=== PATIENT | female | born 1980 | race Caucasian/White ===

== ENCOUNTER 2016-12-15 14:51 | Observation (INO) | payer MEDICARE, MEDICAID ==
[2016-12-15] MEDS ORDERED: Sodium Chloride 0.9% 1,000 ML IV ONE (15:11)
[2016-12-15] MEDS ORDERED: Ondansetron 4 MG/2 ML SDV IVPUSH ONE (15:13)
[2016-12-15] MEDS ORDERED: Pantoprazole 40 MG Vial IVPUSH ONE (15:13)
[2016-12-15] MEDS ORDERED: Aluminum Hydroxide/Magnesium Hydroxide Susp 30 ML Cup PO STA (15:15)
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
[2016-12-15] MEDS ORDERED: diphenhydrAMINE 50 MG/ML SDV IVPUSH STA (16:55)
[2016-12-15] MEDS ORDERED: hydrOXYzine HCl 50 MG/ML SDV IM ONE (16:57)
[2016-12-15] MEDS ORDERED: LORazepam 2 MG/ML MDV IVPUSH STA (19:00)
[2016-12-15] MEDS ORDERED: Sodium Chloride 0.9% 10 ML Syringe FLUSH PRN (19:02)
[2016-12-15] MEDS ORDERED: LORazepam 0.5 MG Tab PO PRN (22:03)
[2016-12-15] MEDS ORDERED: Ondansetron 4 MG/2 ML SDV IVPUSH PRN (22:05)
[2016-12-15] MEDS ORDERED: traZODone 100 MG Tab PO SCH (22:30)
[2016-12-15] MEDS: QUEtiapine 25 MG Tab PO SCH (22:52)
[2016-12-15] MEDS: ZIPRASIDONE HCL 40 MG PO SCH (22:53)
[2016-12-16] MEDS: Omeprazole 20 MG Cap.CR PO SCH ×2 (05:57→10:09)
[2016-12-16] MEDS ORDERED: Benztropine 0.5 MG Tab PO SCH (09:00)
[2016-12-16 09:23] VITALS: BP 96/63
[2016-12-16] MEDS: ZIPRASIDONE HCL 40 MG PO SCH (10:10)
[2016-12-16] MEDS: QUEtiapine 25 MG Tab PO SCH (10:10)
--- NOTE | 2016-12-16 13:25 | PN ---
DATE SEEN: 12/16/2016 SUBJECTIVE: Olga is seen today for followup. Actually, she is doing much better. She tolerated breakfast and lunch well and has had no further nausea or vomiting. She would like to go home. She denies any headaches or blurred vision. She says she is having no hallucinations whatsoever. She does need a note for work for yesterday and today. OBJECTIVE: GENERAL: She is sitting comfortably and at this time, in no acute distress. She is afebrile. VITAL SIGNS: Blood pressure 96/63, pulse when I checked it was 84 and regular, and respirations are unlabored. HEENT: Unremarkable. CHEST: Clear. ABDOMEN: Soft. No tenderness was noted. There is no rebound or rigidity. EXTREMITIES: Negative. IMPRESSION: 1. Gastroenteritis with dehydration and resultant abdominal pain, improved. 2. History of bipolar disorder with chronic anxiety. 3. Previous history of illicit drug use. PLAN: We discussed her further treatment. I recommended she go back on her regular medications and discontinue the illicit drug use as it interferes with her current medicines and tends to make her sick. I have given her an excuse for missing work yesterday and today and encouraged her to drink plenty of fluids. Avoid any alcohol or other irritants to her stomach. Plan on followup with her regular provider in a week for recheck. If there are other problems or difficulties, let us know. /[id number] /SEANL
--- NOTE | 2016-12-16 13:31 | HP ---
ADMISSION DATE: 12/15/2016 CHIEF COMPLAINT: Persistent nausea and vomiting with increased confusion and hallucinations. HISTORY OF PRESENT ILLNESS: This patient is a 36-year-old, female with a longstanding psychiatric history complicated by confusion, chronic anxiety, intermittent hallucinations with panic disorder, recurrent gastritis, Leiden factor V, heterogeneous chain disorder, and illicit drug use who was admitted from the emergency room complaining of increased nausea and vomiting. Apparently, she took her regular medications, which include Geodon this morning on an empty stomach, and at about 10:30, she began having increased nausea and vomiting. She says she was unable to keep even small amounts of liquids down. Because of that, she was brought to the emergency room. She was given IV fluids along with IV Protonix and Ativan. Maalox was given, but she continued to complain of nausea. She was given some IV Vistaril and became more and more confused, began hallucinating, which apparently has been not been all that unusual; however, because they elected to admit her for observation, she was therefore brought over to the floor. She, at this time, denies any epigastric pain. She says she has had no further vomiting. She denies any headache or blurred vision. She is able to tell me the day, date, and year, but easily becomes confused when talking about her history. She denies any recent head trauma. Has had no shortness of breath or chest pain. Denies any palpitations, melena, hematochezia, hematemesis, or hematuria. MEDICATIONS: Difficult to ascertain. As far as I can tell, she takes: 1. Geodon 40 mg b.i.d. 2. Trazodone 100 mg at bedtime. 3. Seroquel 25 mg b.i.d. 4. She is also on omeprazole 20 mg daily. 5. Lorazepam 0.5 mg t.i.d. 6. Cogentin 0.5 mg b.i.d. I asked about other illicit drug use. Apparently, she used marijuana on a regular basis and has used methamphetamine or cocaine in the past also. ALLERGIES: Are extensive and include promethazine, citalopram, Benadryl, Depakote, Reglan, and tramadol. SOCIAL HISTORY: She smokes half pack per day and has done so for many years. She was unable to tell me when she started. Alcohol is used occasionally. PAST MEDICAL HISTORY: Quite extensive and includes previous appendectomy, oophorectomy, previous upper GI endoscopy for gastritis. She has been seen in the emergency room multiple times for many different problems including the above-mentioned anxiety, recurrent vomiting, recurrent epigastric pain. She has a history of bipolar disorder and depression along with reported cardiac arrest back in 2011. She has been at least once and has had cervical conization done. FAMILY HISTORY: Both parents apparently in their late 50s. Father from some sort of cancer; the mother, she is not sure of, thinks it was related to COPD. She has 8 brothers and 2 sisters. One brother apparently has had stem- cell transplant for lymphocytic leukemia. REVIEW OF SYSTEMS: Attempted. Other than that mentioned above in the HPI was otherwise unremarkable. PHYSICAL EXAMINATION: VITAL SIGNS: At this time shows her to be afebrile. Exam today reveals her temperature to be 99.2, blood pressure is 96/63, pulse is 89 and regular, respirations are 16, O2 saturation on room air is 97%. GENERAL: Well-developed, thin-appearing female, who at this time appears in no acute distress. HEENT: Unremarkable. Mucous membranes are pink and moist. Thyroid is not enlarged. Trachea is midline. Chest exam reveals scattered upper airway rhonchi that clears with cough. No wheezes. The expiratory phase may have been slightly prolonged. CARDIOVASCULAR: Reveals a normal S1 and S2 without murmur, rub, or gallop. ABDOMEN: Soft and nontender without organomegaly or masses. Bowel sounds are present. No bruits are noted. EXTREMITIES: Without clubbing. No edema. No ulcerations or areas of breakdown. No calf pain, swelling, or tenderness. There is no evidence of asterixis or hyperreflexia. She is orientated as to person, time, and place. She would mumble multiple times throughout the interview, as her mind would wander off to different subjects, but is easily reoriented. No active hallucinations are noted at this time, either visual or auditory. LABORATORY DATA: Her hemoglobin was 15.7, hematocrit 46.5, white count of 14,900 with a little bit of left shift. Her electrolytes were normal. Creatinine was 0.7, BUN of 7, random glucose was 139. She had normal liver functions. Urinalysis was unremarkable except her pH was a bit high, and she had 15 mg% of ketones. Urine-drug screen, however, was positive for oxycodone, benzodiazepines, cocaine, metabolites, and THC. Since being here, she has been given a liter of normal saline and has been able to eat and drink. There has been no further nausea or vomiting. She has been sleeping well. IMPRESSION: 1. Recent episode of gastroenteritis with mild dehydration that actually seems to be improving. 2. Longstanding history of bipolar disorder with intermittent hallucinations. 3. History of recurrent gastritis. PLAN: We will advance her diet and continue to monitor, and we will see how things go. If in fact she is able to keep fluids down, restart her home medications. We talked to her at length about avoiding any extraneous and illicit drug uses, the combinations do not do well with the medication she is currently taking. We will proceed from there. /[id number] /MARK
== END 2016-12-16 12:58 | disposition home or self-care (01) ==
LOC: FB.ED 14:51 → FB.OB 19:03 → FB.MS 20:00
PROVIDERS: ADMIT Emergency Medicine; ATTEND Family Medicine
DX: K52.9 Noninfective gastroenteritis and colitis, unspecified (principal); E86.0 Dehydration; Z88.8 Allergy status to other drugs, medicaments and biological substances; F32.9 Major depressive disorder, single episode, unspecified; Z90.49 Acquired absence of other specified parts of digestive tract; Z79.899 Other long term (current) drug therapy; Z90.710 Acquired absence of both cervix and uterus; F17.210 Nicotine dependence, cigarettes, uncomplicated; F41.9 Anxiety disorder, unspecified
CPT/HCPCS: 36415; 80048; 80076; 80305; 81001; 82150; 85025; 96361; 96372; 96374; 96375; 96376; 99213; 99225; 99284; 99285; A9270; C9113; G0378; J1200; J2060; J2405; J3410; J7040; J7050

== ENCOUNTER 2017-07-25 08:36 | Day surgery (SDC) | payer MEDICARE, MEDICAID ==
[~2017-07-25 08:36] MED LIST: Lactated Ringers 1,000 ML IV SCH; Sodium Chloride 0.9% 10 ML Syringe FLUSH PRN
[2017-07-25] MEDS ORDERED: Midazolam 1 MG/ML 2 ML SDV IV ONE (08:37)
[2017-07-25] MEDS ORDERED: Propofol 200 MG/20 ML SDV IV ONE (08:37)
--- NOTE | 2017-07-25 09:49 | PCM.OPNOTE ---
- General Post-Op/Procedure Note Date of Surgery/Procedure: 07/25/17 Operative Procedure(s): c scope with random biopsy Findings: normal colon Pre Op Diagnosis: diarrhea Post-Op Diagnosis: nl scope Anesthesia Technique: MAC Primary Surgeon: Will Urrutia Anesthesia Provider: Ayde Olivares Pathology: colon biopsies Complications: None Condition: Good Free Text/Narrative:: see dictation
[2017-07-25 11:03] VITALS: BP 102/64
--- NOTE | 2017-07-25 15:14 | OR ---
DATE OF OPERATION: 07/25/2017 SURGEON: Will Urrutia MD PROCEDURE PERFORMED: Colonoscopy with cold forceps biopsy. PREOPERATIVE DIAGNOSIS: Diarrhea. POSTOPERATIVE DIAGNOSIS: Normal scope. INDICATIONS FOR PROCEDURE: This is a 36-year-old white female who is referred with the above-mentioned history of diarrhea, having up to 5-6 loose stools a day. This has also been accompanied by a weight loss. Workup to date has been negative. She has been offered and accepted a colonoscopy. DESCRIPTION OF PROCEDURE: After an excellent IV sedation was administered via anesthesia, a digital rectal exam was performed. No marked abnormality was noted. The flexible colonoscope was inserted and advanced to the cecum without difficulty. The prep was excellent. Attempts to intubate the terminal ileum were not successful. The scope was then slowly withdrawn and the following findings were noted. Ascending colon, unremarkable. Random biopsies were taken. Transverse colon, unremarkable. Random biopsies were taken. Descending colon, unremarkable. Random biopsies were taken. Sigmoid and rectum, unremarkable. Random biopsies were taken. The colon was deflated as the scope was removed and the patient was taken to recovery in good condition having tolerated the procedure well. /[id number] /SEANL
== END 2017-07-25 11:17 | disposition home or self-care (01) ==
LOC: FB.SDS 08:36
PROVIDERS: ATTEND Surgery
DX: R19.7 Diarrhea, unspecified (principal); K21.9 Gastro-esophageal reflux disease without esophagitis; F41.9 Anxiety disorder, unspecified; F32.9 Major depressive disorder, single episode, unspecified; Z88.8 Allergy status to other drugs, medicaments and biological substances; Z79.899 Other long term (current) drug therapy; Z90.49 Acquired absence of other specified parts of digestive tract; Z98.890 Other specified postprocedural states; F17.210 Nicotine dependence, cigarettes, uncomplicated
CPT/HCPCS: 00810; 45380; 81025; 88305; J2250; J2704; J7120

== ENCOUNTER 2018-06-14 18:34 | Emergency (ER) | payer MEDICARE, MEDICAID ==
[2018-06-14] MEDS ORDERED: Ketorolac 30 MG/ML SDV IM ONE (20:33)
[2018-06-14] MEDS ORDERED: Ketorolac 60 MG/2 ML SDV IM ONE (20:45)
[2018-06-14 21:01] VITALS: BP 112/65
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
== END 2018-06-14 20:40 | disposition left against medical advice (07) ==
LOC: FB.ED 18:34
DX: S20.212A Contusion of left front wall of thorax, initial encounter (principal); J43.1 Panlobular emphysema; F19.10 Other psychoactive substance abuse, uncomplicated; Z53.20 Procedure and treatment not carried out because of patient's decision for unspecified reasons; F17.210 Nicotine dependence, cigarettes, uncomplicated; F41.9 Anxiety disorder, unspecified; F31.9 Bipolar disorder, unspecified; Z88.8 Allergy status to other drugs, medicaments and biological substances; Z79.899 Other long term (current) drug therapy; W18.40XA Slipping, tripping and stumbling without falling, unspecified, initial encounter
CPT/HCPCS: 71101-LT; 96372; 99283; J1885

== ENCOUNTER 2018-11-11 14:16 | Emergency (ER) | payer MEDICARE, MEDICAID ==
[2018-11-11] MEDS ORDERED: Ondansetron 4 MG/2 ML SDV IVPUSH ONE (14:19)
[2018-11-11] MEDS ORDERED: Sodium Chloride 0.9% 1,000 ML IV ONE (14:19)
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
[2018-11-11] MEDS ORDERED: hydrOXYzine HCl 50 MG/ML SDV IM ONE (15:12)
[2018-11-11 15:19] VITALS: BP 89/72
[2018-11-11] MEDS ORDERED: Sodium Chloride 0.9% 1,000 ML IV SCH (16:45)
[2018-11-11] MEDS ORDERED: cefTRIAXone 1 GM in Sodium Chloride 0.9% 50 ML IV ONE (16:51)
[2018-11-11] MEDS ORDERED: Prochlorperazine 10 MG/2 ML SDV IVPUSH ONE (16:54)
[2018-11-11] MEDS ORDERED: Alum Hydroxide/Mag Hydroxide 15 ML, Lidocaine 2% 15 ML PO ONE ×2 (16:58)
== END 2018-11-11 17:22 | disposition home or self-care (01) ==
LOC: FB.ED 14:16
DX: K29.20 Alcoholic gastritis without bleeding (principal); Z76.5 Malingerer [conscious simulation]; Z88.8 Allergy status to other drugs, medicaments and biological substances; Z79.899 Other long term (current) drug therapy
CPT/HCPCS: 36415; 80048; 80076; 80305; 81025; 82150; 85025; 96361; 96372; 96374; 96375; 99284; G0480; J0696; J0780; J2405; J3410; J7030; J7050

== ENCOUNTER 2019-02-08 19:44 | Emergency (ER) | payer MEDICARE, MEDICAID ==
[2019-02-08] MEDS ORDERED: Sodium Chloride 0.9% 1,000 ML IV ONE (20:09)
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
[2019-02-08] MEDS ORDERED: Ketorolac 30 MG/ML SDV IVPUSH ONE (20:13)
[2019-02-08] MEDS: Sodium Chloride 0.9% 10 ML Syringe FLUSH PRN ×2 (20:49→22:12)
[2019-02-08 21:28] VITALS: BP 113/80
[2019-02-08] MEDS ORDERED: Morphine 2 MG/ML Syringe IVPUSH ONE (21:59)
== END 2019-02-08 22:52 | disposition home or self-care (01) ==
LOC: FB.ED 19:44
DX: E86.0 Dehydration (principal); R10.32 Left lower quadrant pain; R10.2 Pelvic and perineal pain; Z88.8 Allergy status to other drugs, medicaments and biological substances; Z88.1 Allergy status to other antibiotic agents; Z79.899 Other long term (current) drug therapy
CPT/HCPCS: 36415; 51798; 74176; 80048; 80305-QW; 81001; 81025; 85025; 96361; 96374; 96375; 99284; 99284-25; J1885; J2270; J7030

== ENCOUNTER 2020-06-19 11:12 | Emergency (ER) | payer MEDICARE, MEDICAID ==
[2020-06-19] MEDS ORDERED: Ondansetron 4 MG/2 ML SDV IVPUSH ONE (11:27)
[2020-06-19] MEDS ORDERED: LORazepam 2 MG/ML SDV IVPUSH ONE (11:27)
[2020-06-19] MEDS ORDERED: Sodium Chloride 0.9% 1,000 ML IV SCH (11:30)
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
[2020-06-19] MEDS ORDERED: Prochlorperazine 10 MG in Sodium Chloride 0.9% 50 ML IV ONE (12:40)
[2020-06-19 13:35] VITALS: BP 110/66; PULSE 69
== END 2020-06-19 13:57 | disposition home or self-care (01) ==
LOC: FB.ED 11:12
DX: F41.9 Anxiety disorder, unspecified (principal); R11.2 Nausea with vomiting, unspecified; F31.9 Bipolar disorder, unspecified; F17.210 Nicotine dependence, cigarettes, uncomplicated; Z79.899 Other long term (current) drug therapy; Z88.8 Allergy status to other drugs, medicaments and biological substances; Z88.1 Allergy status to other antibiotic agents; Z88.5 Allergy status to narcotic agent
CPT/HCPCS: 36415; 80048; 85025; 96361; 96365; 96375; 99284-25; J0780; J2060; J2405; J7030; J7050

== ENCOUNTER 2021-03-29 12:27 | Emergency (ER) | payer MEDICARE, MEDICAID ==
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
[2021-03-29 14:20] LABS: ACETAMINOPHEN < 2 ug/mL (<2)
[2021-03-29 16:49] VITALS: BP 113/75; PULSE 80
== END 2021-03-29 16:00 | disposition home or self-care (01) ==
LOC: FB.ED 12:27
DX: F25.9 Schizoaffective disorder, unspecified (principal); F22 Delusional disorders; U07.1 COVID-19; K21.9 Gastro-esophageal reflux disease without esophagitis; Z88.8 Allergy status to other drugs, medicaments and biological substances; Z88.6 Allergy status to analgesic agent; Z88.5 Allergy status to narcotic agent; Z79.899 Other long term (current) drug therapy; Z72.0 Tobacco use
CPT/HCPCS: 36415; 80053; 80143; 80179; 80305; 80307; 81025; 84443; 85025; 99284; U0002

== ENCOUNTER 2021-10-12 19:59 | Emergency (ER) | payer MEDICARE, MEDICAID ==
[2021-10-12] MEDS ORDERED: Acetaminophen 500 MG Tab PO STA (20:05)
[2021-10-12] MEDS ORDERED: traMADol 50 MG Tab PO STA (20:05)
[2021-10-12] MEDS ORDERED: Ketorolac 30 MG/ML SDV IM STA (20:13)
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
[2021-10-13 00:28] VITALS: BP 128/89; PULSE 110
== END 2021-10-12 23:10 | disposition home or self-care (01) ==
LOC: FB.ED 19:59
DX: S00.83XA Contusion of other part of head, initial encounter (principal); Z88.8 Allergy status to other drugs, medicaments and biological substances; Z88.5 Allergy status to narcotic agent; Y04.0XXA Assault by unarmed brawl or fight, initial encounter
CPT/HCPCS: 36415; 70450; 71101; 73110; 80053; 80307; 85025; 96372; 99284; A9270; J1885

== ENCOUNTER 2022-11-10 11:36 | Emergency (ER) | payer MEDICARE, MEDICAID ==
[2022-11-10] MEDS ORDERED: Sodium Chloride 0.9% 10 ML Syringe FLUSH PRN (12:33)
[2022-11-10] MEDS ORDERED: Ondansetron 4 MG/2 ML SDV IVPUSH ONE ×2 (12:33→14:22)
[2022-11-10] MEDS ORDERED: Sodium Chloride 0.9% 1,000 ML IV ONE ×2 (12:33→14:19)
[2022-11-10 13:02] LABS: ESTIMATED GFR 116 mL/min (>60)
[2022-11-10] MEDS ORDERED: Magnesium Sulfate/Water 2 GM in Premix Bag 1 BAG IV ONE (13:25)
[2022-11-10] MEDS ORDERED: Metoclopramide 10 MG/2 ML SDV IVPUSH ONE (14:19)
[2022-11-10 18:14] VITALS: BP 129/76; PULSE 71
== END 2022-11-10 16:18 | disposition home or self-care (01) ==
LOC: FB.ED 11:36
DX: B34.9 Viral infection, unspecified (principal); R11.2 Nausea with vomiting, unspecified; E86.0 Dehydration; K21.9 Gastro-esophageal reflux disease without esophagitis; Z88.5 Allergy status to narcotic agent; Z88.8 Allergy status to other drugs, medicaments and biological substances; Z79.899 Other long term (current) drug therapy; Z86.16 Personal history of COVID-19; Z72.0 Tobacco use
CPT/HCPCS: 36415; 71045; 80053; 81001; 83690; 83735; 84484; 85025; 86140; 93005; 93010; 96361; 96365; 96375; 96376; 99283; 99285-25; J2405; J3475; J7030

== ENCOUNTER 2022-11-18 08:32 | Emergency (ER) | payer MEDICARE, MEDICAID ==
[2022-11-18] MEDS ORDERED: Prochlorperazine 10 MG/2 ML SDV IVPUSH ONE (08:55)
[2022-11-18] MEDS ORDERED: Sodium Chloride 0.9% 10 ML Syringe FLUSH PRN (08:55)
[2022-11-18] MEDS ORDERED: Ketorolac 30 MG/ML SDV IVPUSH ONE (08:59)
[2022-11-18] MEDS ORDERED: Sodium Chloride 0.9% 1,000 ML IV SCH (09:00)
[2022-11-18 09:45] LABS: ESTIMATED GFR 111 mL/min (>60)
[2022-11-18] MEDS ORDERED: Iopamidol 755 Mg/ML 100 ML Bottle IV ONE (10:43)
[2022-11-18 13:37] VITALS: BP 148/83; PULSE 60
== END 2022-11-18 12:25 | disposition home or self-care (01) ==
LOC: FB.ED 08:32
DX: N39.0 Urinary tract infection, site not specified (principal); K52.9 Noninfective gastroenteritis and colitis, unspecified; K21.9 Gastro-esophageal reflux disease without esophagitis; Z88.5 Allergy status to narcotic agent; Z88.8 Allergy status to other drugs, medicaments and biological substances; Z79.899 Other long term (current) drug therapy
CPT/HCPCS: 36415; 74177; 80053; 81001; 81025; 82150; 83690; 85025; 87086; 96361; 96374; 96375; 99283; 99284-25; J0780; J1885; J3490; J7030; Q9967

== ENCOUNTER 2022-12-24 12:08 | Emergency (ER) | payer MEDICARE, MEDICAID ==
[2022-12-24 12:50] VITALS: BP 122/69; PULSE 102
[2022-12-24 13:15] LABS: ESTIMATED GFR 121 mL/min (>60)
[2022-12-24] MEDS ORDERED: Polyethylene Glycol 3350 Powder 17 GM Packet PO ONE (13:23)
== END 2022-12-24 14:44 | disposition home or self-care (01) ==
LOC: FB.ED 12:08
DX: K59.00 Constipation, unspecified (principal); D72.829 Elevated white blood cell count, unspecified; K21.9 Gastro-esophageal reflux disease without esophagitis; F17.210 Nicotine dependence, cigarettes, uncomplicated; Z88.8 Allergy status to other drugs, medicaments and biological substances; Z88.1 Allergy status to other antibiotic agents; Z79.899 Other long term (current) drug therapy
CPT/HCPCS: 36415; 80053; 81001; 85025; 86140; 99283; 99284; A9270-GY

== ENCOUNTER 2023-03-13 13:07 | Emergency (ER) | payer MEDICARE, MEDICAID ==
[2023-03-13 14:08] LABS: BASOPHILS ABSOLUTE AUTO 0.1 x10-3/uL (0.0-0.1); BASOPHILS PERCENT AUTO 1.3 % (0.2-1.5); EOSINOPHILS ABSOLUTE AUTO 0.3 x10-3/uL (0.0-0.8); HEMATOCRIT 39.4 % (34.2-48.2); HEMOGLOBIN 13.1 g/dL (11.4-15.5); LYMPHOCYTES ABSOLUTE AUTO 2.6 x10-3/uL (1.0-4.4); LYMPHOCYTES PERCENT AUTO 24.2 % (18.4-52.1); MEAN CORPUSCULAR HEMOGLOBIN 32.1 pg (23.9-33.9); MEAN CORPUSCULAR HGB CONC 33.2 g/dL (31.9-34.8); MEAN CORPUSCULAR VOLUME 96.7 fL (76.7-100.5); MEAN PLATELET VOLUME 8.7 fL (7.1-12.4); MONOCYTES ABSOLUTE AUTO 0.7 x10-3/uL (0.3-1.0); MONOCYTES PERCENT AUTO 6.3 % (4.4-15.7); NEUTROPHILS PERCENT AUTO 65.2 % (30.8-76.2); PLATELET COUNT,PLT 222 x10(3)uL (151-488); RED BLOOD CELL COUNT 4.08 x10(6)uL (3.60-5.20); WHITE BLOOD CELL COUNT,WBC 10.7 x10-3/uL (3.0-10.3)
[2023-03-13 14:09] LABS: BLOOD UREA NITROGEN,BUN 10 mg/dL (7-18); BUN/CREATININE RATIO 14.3 (9-20); CALCIUM 8.5 mg/dL (8.6-10.2); CARBON DIOXIDE,CO2 32 mmol/L (21-32); CHLORIDE,CL 103 mmol/L (100-110); CREATININE 0.7 mg/dL (0.55-1.02); EST CRCL DRUG DOSING (CG) 83.65 mL/min; ESTIMATED GFR 111 mL/min (>60); GLUCOSE RANDOM 85 mg/dL (80-116); POTASSIUM,K 4.9 mmol/L (3.5-5.3); SODIUM,NA 138 mmol/L (135-145)
[2023-03-13 14:15] LABS: A/G RATIO 1.3; ALANINE AMINOTRANSFERASE,ALT 20 U/L (12-36); ALBUMIN 3.3 g/dL (3.5-5.2); ALKALINE PHOSPHATASE 81 IU/L (56-112); ASPARTATE AMNIOTRANSFERASE,AST 20 IU/L (5-25); BILIRUBIN TOTAL 0.3 mg/dL (0.1-1.3); PROTEIN TOTAL,TP 5.9 g/dL (6.0-8.0)
[2023-03-13 19:16] VITALS: BP 106/58; PULSE 73
== END 2023-03-13 15:00 | disposition home or self-care (01) ==
LOC: FB.ED 13:07
DX: R07.89 Other chest pain (principal); K21.9 Gastro-esophageal reflux disease without esophagitis; F17.200 Nicotine dependence, unspecified, uncomplicated; Z86.16 Personal history of COVID-19; Z79.899 Other long term (current) drug therapy; Z88.8 Allergy status to other drugs, medicaments and biological substances
CPT/HCPCS: 36415; 71046; 80053; 84484; 85025; 85379; 93005; 99285

== ENCOUNTER 2023-08-20 20:20 | Emergency (ER) | payer MEDICARE, MEDICAID ==
[2023-08-20 21:21] VITALS: BP 106/76; PULSE 100
== END 2023-08-20 21:06 | disposition home or self-care (01) ==
LOC: FB.ED 20:20
DX: R50.9 Fever, unspecified (principal); I25.2 Old myocardial infarction; K21.9 Gastro-esophageal reflux disease without esophagitis; Z87.891 Personal history of nicotine dependence; Z86.16 Personal history of COVID-19; Z79.899 Other long term (current) drug therapy; Z88.8 Allergy status to other drugs, medicaments and biological substances; Z88.5 Allergy status to narcotic agent
CPT/HCPCS: 99282; 99283

== ENCOUNTER 2024-07-29 17:32 | Emergency (ER) | payer MEDICARE, MEDICAID ==
[2024-07-29 19:38] VITALS: BP 105/55; PULSE 93
== END 2024-07-29 19:58 | disposition home or self-care (01) ==
LOC: FB.ED 17:32
DX: S00.83XA Contusion of other part of head, initial encounter (principal); J44.9 Chronic obstructive pulmonary disease, unspecified; K21.9 Gastro-esophageal reflux disease without esophagitis; F17.210 Nicotine dependence, cigarettes, uncomplicated; Z90.49 Acquired absence of other specified parts of digestive tract; Z86.16 Personal history of COVID-19; Z79.899 Other long term (current) drug therapy; Z88.5 Allergy status to narcotic agent; Z88.8 Allergy status to other drugs, medicaments and biological substances; Y04.8XXA Assault by other bodily force, initial encounter
CPT/HCPCS: 70450; 72125; 99283

== ENCOUNTER 2024-12-04 16:20 | Emergency (ER) | payer MEDICARE, MEDICAID ==
[2024-12-04] MEDS ORDERED: Sulfamethoxazole/Trimethoprim 800-160 MG Tab PO ONE (16:21)
[2024-12-04 17:21] LABS: BASOPHILS ABSOLUTE AUTO 0.1 x10-3/uL (0.0-0.1); BASOPHILS PERCENT AUTO 1.2 % (0.2-1.5); EOSINOPHILS ABSOLUTE AUTO 0.1 x10-3/uL (0.0-0.8); EOSINOPHILS PERCENT AUTO 1.2 % (0.6-8.1); HEMATOCRIT 42.6 % (34.2-48.2); HEMOGLOBIN 14.6 g/dL (11.4-15.5); LYMPHOCYTES ABSOLUTE AUTO 2.2 x10-3/uL (1.0-4.4); LYMPHOCYTES PERCENT AUTO 22.4 % (18.4-52.1); MEAN CORPUSCULAR HEMOGLOBIN 32.4 pg (23.9-33.9); MEAN CORPUSCULAR HGB CONC 34.3 g/dL (31.9-34.8); MEAN CORPUSCULAR VOLUME 94.5 fL (76.7-100.5); MEAN PLATELET VOLUME 9.6 fL (7.1-12.4); MONOCYTES ABSOLUTE AUTO 0.6 x10-3/uL (0.3-1.0); MONOCYTES PERCENT AUTO 6.3 % (4.4-15.7); NEUTROPHILS ABSOLUTE AUTO 6.6 x10-3/uL (1.5-6.3); NEUTROPHILS PERCENT AUTO 68.9 % (30.8-76.2); PLATELET COUNT,PLT 229 x10(3)uL (151-488); RED BLOOD CELL COUNT 4.51 x10(6)uL (3.60-5.20); RED CELL DISTRIBUTION WIDTH 13.7 % (12.3-16.5); WHITE BLOOD CELL COUNT,WBC 9.6 x10-3/uL (3.0-10.3)
[2024-12-04 17:30] LABS: BLOOD UREA NITROGEN,BUN 9 mg/dL (7-18); BUN/CREATININE RATIO 11.3 (9-20); CALCIUM 9.6 mg/dL (8.6-10.2); CARBON DIOXIDE,CO2 28 mmol/L (21-32); CHLORIDE,CL 103 mmol/L (100-110); CREATININE 0.8 mg/dL (0.55-1.02); EST CRCL DRUG DOSING (CG) 75.01 mL/min; ESTIMATED GFR 94 mL/min (>60); GLUCOSE RANDOM 100 mg/dL (80-116); POTASSIUM,K 3.6 mmol/L (3.5-5.3); SODIUM,NA 141 mmol/L (135-145)
[2024-12-04 17:36] LABS: A/G RATIO 1.3; ALANINE AMINOTRANSFERASE,ALT 21 U/L (12-36); ALBUMIN 4.2 g/dL (3.5-5.2); ALKALINE PHOSPHATASE 110 IU/L (56-112); ASPARTATE AMNIOTRANSFERASE,AST 26 IU/L (5-25); BILIRUBIN TOTAL 0.7 mg/dL (0.1-1.3); PROTEIN TOTAL,TP 7.4 g/dL (6.0-8.0)
[2024-12-04 17:45] LABS: ETHANOL BLOOD MEDICAL < 0.03 % (<0.03); TSH ULTRASENSITIVE 0.72 IU/mL (0.36-3.74)
[2024-12-04 18:07] LABS: BILIRUBIN,URINE SMALL (NEGATIVE); GLUCOSE,URINE NORMAL (NORMAL); KETONES,URINE 15 mg/dL (NEGATIVE); LEUKOCYTE ESTERASE,URINE MODERATE (NEGATIVE); NITRITE,URINE NEGATIVE (NEGATIVE); OCCULT BLOOD,URINE MODERATE (NEGATIVE); PROTEIN,URINE 100 mg/dL (NEGATIVE); UROBILINOGEN,URINE 4 mg/dL (NEGATIVE)
[2024-12-04 18:20] LABS: APPEARANCE,URINE SLIGHTLY CLOUDY (CLEAR); COLOR,URINE YELLOW (YELLOW)
[2024-12-04 18:22] LABS: BACTERIA,URINE FEW (NS); MUCUS,URINE FEW (NS); RBC,URINE 0-5 (0-5); SQUAMOUS EPITHELIAL CELLS,UR MODERATE (NS,R,O)
[2024-12-04 18:23] LABS: AMPHETAMINES SCREEN, URINE POSITIVE (NEGATIVE); BENZODIAZEPINES SCREEN,URINE POSITIVE (NEGATIVE); METHAMPHETAMINE SCREEN, URINE NEGATIVE (NEGATIVE); THC SCREEN,URINE POSITIVE (NEGATIVE)
[2024-12-04 18:24] LABS: BARBITURATE SCREEN,URINE NEGATIVE (NEGATIVE); METHADONE SCREEN, URINE NEGATIVE (NEGATIVE); OXYCODONE SCREEN,URINE NEGATIVE (NEGATIVE)
[2024-12-04 18:25] LABS: BUPRENORPHINE SCREEN,URINE NEGATIVE (NEGATIVE)
[2024-12-04] MEDS: LORazepam 2 MG/ML SDV IM STA (21:56)
[2024-12-04] MEDS: OLANZapine 10 MG Vial IM STA ×2 (21:56→22:02)
[2024-12-05 01:32] VITALS: BP 108/60; PULSE 58
[2024-12-05] MEDS: OLANZapine 10 MG Vial IM ONE (05:58)
[2024-12-05] MEDS: LORazepam 2 MG/ML SDV IM ONE (05:58)
[2024-12-08 02:39] LABS: THYROXINE FREE 1.6 ng/dL (0.9-1.7)
== END 2024-12-05 06:02 ==
LOC: FB.ED 16:20
DX: F31.12 Bipolar disorder, current episode manic without psychotic features, moderate (principal); N39.0 Urinary tract infection, site not specified; J44.9 Chronic obstructive pulmonary disease, unspecified; F17.210 Nicotine dependence, cigarettes, uncomplicated; Z86.16 Personal history of COVID-19; Z88.5 Allergy status to narcotic agent; Z88.8 Allergy status to other drugs, medicaments and biological substances; Z79.899 Other long term (current) drug therapy
CPT/HCPCS: 36415; 80053; 80307; 81001; 81025; 84439; 84443; 85025; 87086; 96372; 99285; A9270; J2060; J2359

== ENCOUNTER 2025-02-15 14:30 | Emergency (ER) | payer MEDICAID, MEDICARE ==
[2025-02-15] MEDS: hydrOXYzine HCl 50 MG/ML SDV IM ONE (14:39)
[2025-02-15] MEDS: Diazepam 5 MG Tab PO ONE ×2 (15:16→15:18)
[2025-02-15 17:28] VITALS: BP 122/69; PULSE 68
== END 2025-02-15 15:26 | disposition home or self-care (01) ==
LOC: FB.ED 14:30
DX: F41.1 Generalized anxiety disorder (principal); K21.9 Gastro-esophageal reflux disease without esophagitis; Z88.8 Allergy status to other drugs, medicaments and biological substances; Z79.899 Other long term (current) drug therapy; Z86.16 Personal history of COVID-19; Z90.49 Acquired absence of other specified parts of digestive tract
CPT/HCPCS: 96372; 99284; A9270; J3410

== ENCOUNTER 2025-05-16 11:15 | Emergency (ER) | payer MEDICARE, MEDICAID ==
[2025-05-16 12:33] VITALS: BP 107/62; PULSE 87
== END 2025-05-16 12:47 | disposition home or self-care (01) ==
LOC: FB.ED 11:15
DX: S09.90XA Unspecified injury of head, initial encounter (principal); M54.6 Pain in thoracic spine; M54.50 Low back pain, unspecified; J44.9 Chronic obstructive pulmonary disease, unspecified; K21.9 Gastro-esophageal reflux disease without esophagitis; Z86.16 Personal history of COVID-19; Z88.8 Allergy status to other drugs, medicaments and biological substances; Z88.5 Allergy status to narcotic agent; Z79.899 Other long term (current) drug therapy; W22.8XXA Striking against or struck by other objects, initial encounter; Y93.89 Activity, other specified
CPT/HCPCS: 70450; 72125; 72128; 99283